=== PATIENT | male | born 1945 | race Caucasian/White ===

== ENCOUNTER → 2017-12-20 14:09 | Outpatient (CLI) | payer MEDICARE ==
[~2017-12-20 14:09] MED LIST: ALEVE220 MG PO; FLOMAX0.4 MG PO; METOPROLOL TART25 MG
[2018-01-11 16:49] VITALS: BMI 26.2
== END | disposition home or self-care (01) ==
LOC: D.CT 14:09
DX: S32.020A Wedge compression fracture of second lumbar vertebra, initial encounter for closed fracture (principal); X58.XXXA Exposure to other specified factors, initial encounter

== ENCOUNTER → 2018-01-07 12:27 | Outpatient (CLI) | payer MEDICARE ==
[2018-01-11 16:49] VITALS: BMI 26.2
== END | disposition home or self-care (01) ==
LOC: D.NM 12:27
DX: C79.51 Secondary malignant neoplasm of bone (principal)

== ENCOUNTER 2018-01-10 10:33 | Inpatient (IN) | payer MEDICARE ==
[2018-01-10] VITALS (9 sets, daily range): BP systolic 152–196; BP diastolic 79–94; BMI 26.3
[~2018-01-10] VITALS: Ht 190.5 cm; Wt 95.3 kg
--- NOTE | ~2018-01-10 | MORECARE ---
CASE MANAGEMENT DISCHARGE SUMMARY PATIENT: STEPHANIE PITTMAN UNIT: [id number] ADM DATE: 01/10/18 AGE: 72 : 47 SEX: M ROOM/BED: D.2217 AUTHOR: CARY,DOC PHYSICIAN: REFERRING PHYSICIAN: OSMAN LOPEZ MD DATE OF SERVICE: 01/16/18 Discharge Plan Patient Name: STEPHANIE PITTMAN Facility: [facility]:[place] : 1945 Planned Disposition: Anticipated Discharge Date: Discharge Date: 01/15/2018 Expected LOS: Initial Reviewer: [email or web address] Initial Review Date: 01/10/2018 Generated: 01/16/18 11:30 am Comments DCP- Discharge Planning Updated by [email or web address]: Nel Bettencourt on 01/15/18 12:[address] patient will be going to room [address] [facility] transporting via EMS, nurse will call report DCP- Discharge Planning Updated by [id number]: Nel Bettencourt on 01/15/18 9:[address] MET WITH PATIENT AND , IMM SERVED AND EXPLAINED. UPDATED THEM ON THE PROCESS OF TRANSFERING TO [facility] FOR RADIATION. THEY VERBALIZE UNDERSTANDING. CM WILL CONTINUE TO ASSIST WITH HELP WITH TRANSFERING TO [facility] ORDERED DCP- Discharge Planning Updated by [id number]: Nel Bettencourt on 01/15/18 9:[address] ORDER RECEIVED TO TRANSFER TO [facility] FOR PALLIATIVE RADIATION. I CALLED [facility] AND SPOKE WITH SONI, FAXED FACESHEET TO [phone] I CALLED THE [facility]GAN [facility] TO LET HER KNOW ALSO DCP- Discharge Planning Updated by [id number]: Nel Bettencourt on 01/11/18 2:[address] Marina Colin with [place] [facility] in [place] ([phone]) stated that they are in the process of getting things set up for him (ramp, elevated toilet, wheelchair, etc ) and she will need the PT and OT eval to help with this approval. They will need to be faxed to [phone] when we receive it. I called and spoke with Harleen to let her know the above Coverage Notice Reviewer: [id number] - Nel Sg Notice Issued Date-Time: 01/15/2018 10:25 Notice Type: IM Discharge Notice Notice Delivered To: Family Member Relationship to Patient: Spouse Title I Teacher Name: SULEIMAN Delivery Method: HAND - Hand Delivered Devika Days: Prior Verbal Notification: Recipient Understood Notice: Yes Recipient Signature: Yes Med Rec Note Co-signed by Attending: Coverage Notice Comment: Last DP export: 01/15/18 1:02 p Patient Name: STEPHANIE PITTMAN Page [id number] at 1030 All edits/amendments must be made on the electronic document DICTATION DATE: 01/16/18 1029 AUTOMOTIVE REPAIR TECHNICIAN: CLINT 01/16/18 1029 RPT#: [id number] DC DATE:01/15/18 STATUS: DIS IN [facility] [address] [place] [address] END OF REPORT
--- NOTE | ~2018-01-10 | MORECARE ---
CASE MANAGEMENT DISCHARGE SUMMARY PATIENT: STEPHANIE PITTMAN UNIT: [id number] ADM DATE: 01/10/18 AGE: 72 : 47 SEX: M ROOM/BED: D.2217 AUTHOR: CARY,DOC PHYSICIAN: REFERRING PHYSICIAN: OSMAN LOPEZ MD DATE OF SERVICE: 01/15/18 Discharge Plan Patient Name: STEPHANIE PITTMAN Facility: [facility]:[place] : 1945 Planned Disposition: Anticipated Discharge Date: Discharge Date: Expected LOS: Initial Reviewer: [email or web address] Initial Review Date: 01/10/2018 Generated: 01/15/18 3:02 pm Comments DCP- Discharge Planning Updated by [email or web address]: Nel Bettencourt on 01/15/18 12:[address] patient will be going to room [address] [facility] transporting via EMS, nurse will call report DCP- Discharge Planning Updated by [email or web address]: Nel Bettencourt on 01/15/18 9:[address] MET WITH PATIENT AND , IMM SERVED AND EXPLAINED. UPDATED THEM ON THE PROCESS OF TRANSFERING TO [facility] FOR RADIATION. THEY VERBALIZE UNDERSTANDING. CM WILL CONTINUE TO ASSIST WITH HELP WITH TRANSFERING TO [facility] ORDERED DCP- Discharge Planning Updated by [email or web address]: Nel Bettencourt on 01/15/18 9:[address] ORDER RECEIVED TO TRANSFER TO [facility] FOR PALLIATIVE RADIATION. I CALLED [facility] AND SPOKE WITH SONI, FAXED FACESHEET TO [phone] I CALLED THE [facility] TO LET HER KNOW ALSO DCP- Discharge Planning Updated by [email or web address]: Nel Bettencourt on 01/11/18 2:[address] [facility] [place] [phone][facility] stated that they are in the process of getting things set up for him (ramp, elevated toilet, wheelchair, etc ) and she will need the PT and OT eval to help with this approval. They will need to be faxed to [phone] when we receive it. I called and spoke with Harleen to let her know the above Coverage Notice Reviewer: [id number] - Nel Bettencourt Notice Issued Date-Time: 01/15/2018 10:25 Notice Type: IM Discharge Notice Notice Delivered To: Family Member Relationship to Patient: Spouse Fashion Coordinator Name: SULEIMAN Delivery Method: HAND - Hand Delivered Devika Days: Prior Verbal Notification: Recipient Understood Notice: Yes Recipient Signature: Yes Med Rec Note Co-signed by Attending: Coverage Notice Comment: Last DP export: 01/15/18 9:36 a Patient Name: STEPHANIE PITTMAN Page [phone] at 1402 All edits/amendments must be made on the electronic document DICTATION DATE: 01/15/18 1402 AIRDROP SYSTEMS TECHNICIAN: CLINT 01/15/18 1402 RPT#: [id number] DC DATE: STATUS: ADM IN [facility] [address] [place] [address] END OF REPORT
--- NOTE | ~2018-01-10 | MORECARE ---
CASE MANAGEMENT DISCHARGE SUMMARY PATIENT: STEPHANIE PITTMAN UNIT: [id number] ADM DATE: 01/10/18 AGE: 72 : 47 SEX: M ROOM/BED: D.2217 AUTHOR: CARY,DOC PHYSICIAN: REFERRING PHYSICIAN: OSMAN LOPEZ MD DATE OF SERVICE: 01/15/18 Discharge Plan Patient Name: STEPHANIE PITTMAN Facility: [facility]:[place] : 1945 Planned Disposition: Anticipated Discharge Date: Discharge Date: Expected LOS: Initial Reviewer: [email or web address] Initial Review Date: 01/10/2018 Generated: 01/15/18 11:36 am Comments DCP- Discharge Planning Updated by [email or web address]: Nel Bettencourt on 01/15/18 9:[address] MET WITH PATIENT AND , IMM SERVED AND EXPLAINED. UPDATED THEM ON THE PROCESS OF TRANSFERING TO [facility] FOR RADIATION. THEY VERBALIZE UNDERSTANDING. CM WILL CONTINUE TO ASSIST WITH HELP WITH TRANSFERING TO [facility] ORDERED DCP- Discharge Planning Updated by [email or web address]: Nel Bettencourt on 01/15/18 9:[address] ORDER RECEIVED TO TRANSFER TO [facility] FOR PALLIATIVE RADIATION. I CALLED [facility] AND SPOKE WITH SONI, FAXED FACESHEET TO [phone] I CALLED THE [facility] TO LET HER KNOW ALSO DCP- Discharge Planning Updated by [email or web address]: Nel Bettencourt on 01/11/18 2:[address] [facility] [place] [facility] [place] ([phone][facility] stated that they are in the process of getting things set up for him (ramp, elevated toilet, wheelchair, etc ) and she will need the PT and OT eval to help with this approval. They will need to be faxed to [phone] when we receive it. I called and spoke with Harleen to let her know the above Coverage Notice Reviewer: [id number] - Nel Bettencourt Notice Issued Date-Time: 01/15/2018 10:25 Notice Type: IM Discharge Notice Notice Delivered To: Family Member Relationship to Patient: Spouse Backup Operator Name: SULEIMAN Delivery Method: HAND - Hand Delivered Devika Days: Prior Verbal Notification: Recipient Understood Notice: Yes Recipient Signature: Yes Med Rec Note Co-signed by Attending: Coverage Notice Comment: Last DP export: 01/15/18 9:22 a Patient Name: STEPHANIE PITTMAN Page [id number] at 1036 All edits/amendments must be made on the electronic document DICTATION DATE: 01/15/18 1035 PUBLIC HEALTH OUTREACH WORKER: CLINT 01/15/18 1035 RPT#: [id number] DC DATE: STATUS: ADM IN [facility] [address] [place] [address] END OF REPORT
--- NOTE | ~2018-01-10 | MORECARE ---
CASE MANAGEMENT DISCHARGE SUMMARY PATIENT: STEPHANIE PITTMAN UNIT: [id number] ADM DATE: 01/10/18 AGE: 72 : 47 SEX: M ROOM/BED: D.2217 AUTHOR: MORELIA TOWNSEND PHYSICIAN: REFERRING PHYSICIAN: OSMAN LOPEZ MD DATE OF SERVICE: 01/15/18 Discharge Plan Patient Name: STEPHANIE PITTMAN [facility] : 1945 Planned Disposition: Anticipated Discharge Date: Discharge Date: Expected LOS: Initial Reviewer: [id number] Initial Review Date: 01/10/2018 Generated: 01/15/18 11:22 am Comments DCP- Discharge Planning Updated by [email or web address]: Nel Bettencourt on 01/15/18 9:[address] ORDER RECEIVED TO TRANSFER TO [facility] FOR PALLIATIVE RADIATION. I CALLED [facility] AND SPOKE WITH SONI, FAXED FACESHEET TO [phone] I CALLED THE MEGAN [facility] TO LET HER KNOW ALSO DCP- Discharge Planning Updated by [email or web address]: Nel Bettencourt on 01/11/18 2:[address] Marina Colin with [place] [facility] in [place] ([phone]) stated that they are in the process of getting things set up for him (ramp, elevated toilet, wheelchair, etc ) and she will need the PT and OT eval to help with this approval. They will need to be faxed to [phone] when we receive it. I called and spoke with Harleen to let her know the above Last DP export: 01/11/18 2:30 Patient Name: STEPHANIE PITTMAN Page [id number] at 1022 All edits/amendments must be made on the electronic document DICTATION DATE: 01/15/18 1021 J2EE PROGRAMMER: CLINT 01/15/18 1021 RPT#: [id number] DC DATE: STATUS: ADM IN [facility] [address] [place] [address] END OF REPORT
--- NOTE | ~2018-01-10 | MORECARE ---
CASE MANAGEMENT DISCHARGE SUMMARY PATIENT: STEPHANIE PITTMAN UNIT: [id number] ADM DATE: 01/10/18 AGE: 72 : [birth year] SEX: M ROOM/BED: D.2217 AUTHOR: MORELIA TOWNSEND PHYSICIAN: REFERRING PHYSICIAN: OSMAN LOPEZ MD DATE OF SERVICE: 01/11/18 Discharge Plan Patient Name: STEPHANIE PITTMAN [facility] : 1945 Planned Disposition: Anticipated Discharge Date: Discharge Date: Expected LOS: Initial Reviewer: [email or web address] Initial Review Date: 01/10/2018 Generated: 01/11/18 4:29 pm Comments DCP- Discharge Planning Updated by [email or web address]: Nel Bettencourt on 01/11/18 2:[address] Marina Dixie with [facility] in [place] ([phone]) stated that they are in the process of getting things set up for him (ramp, elevated toilet, wheelchair, etc ) and she will need the PT and OT eval to help with this approval. They will need to be faxed to [phone] when we receive it. I called and spoke with Harleen to let her know the above Patient Name: STEPHANIE PITTMAN Page [phone] at 1530 All edits/amendments must be made on the electronic document DICTATION DATE: 01/11/18 1529 REMELT OPERATOR: CLINT 01/11/18 1529 RPT#: [id number] DC DATE: STATUS: ADM IN [facility] [address] [place] [address] END OF REPORT
[2018-01-10] MEDS ORDERED: ALEVE220 MG PO (10:48)
[2018-01-10] MEDS ORDERED: METOPROLOL TART25 MG (10:49)
[2018-01-10 13:40] LABS: BASOPHILS 0.5 % (0-2); EOSINOPHILS 1.5 % (0-7); HEMOGLOBIN 12.1 g/dL (13.5-17.5); LYMPHOCYTES 13.9 % (15-50); MCH 26.2 pg (26.0-34.0); MCHC 32.7 g/dL (31.0-37.0); MCV 80.3 fL (80.0-100.0); MEAN PLATELET VOLUME 9.4 fL (7.4-10.4); MONOCYTES 8.1 % (2-11); PLATELET COUNT 232 10x3/uL (130-400); RBC 4.61 10x6/uL (4.20-6.10); RDW 14.7 % (11.5-14.5); WBC 11.7 10x3/uL (4.8-10.8)
[2018-01-10 13:54] LABS: ALBUMIN 2.3 g/dL (3.4-5.0); ANION GAP 17.1 mmol/L (8-16); BILIRUBIN - TOTAL 0.59 mg/dL (0.2-1.3); CALCIUM 10.4 mg/dL (8.5-10.1); CARBON DIOXIDE 25.2 mmol/L (21.0-32.0); CREATININE - SERUM 1.1 mg/dL (0.6-1.3); POTASSIUM - SERUM 3.3 mmol/L (3.5-5.1)
[2018-01-10 16:37] LABS: APPEARANCE CLEAR (CLEAR); BACTERIA NONE SEEN /hpf (NONE SEEN); BILIRUBIN NEGATIVE (NEGATIVE); COLOR YELLOW (YELLOW); EPITHELIAL CELLS NSEEN /hpf (0-5); GLUCOSE NEGATIVE (NEGATIVE); KETONE SMALL mg/dL (NEGATIVE); NITRITE NEGATIVE (NEGATIVE); PROTEIN 1+ mg/dL (NEGATIVE); RED CELLS - URINE NONE SEEN /hpf (0-5); SPECIFIC GRAVITY 1.015 (1.005-1.020); UROBILINOGEN NORMAL (NORMAL); WHITE CELLS - URINE RARE /hpf (0-5)
[2018-01-11] VITALS: BP 177/92
[2018-01-11 04:00] VITALS: BP 158/91
[2018-01-11 04:27] LABS: BASOPHILS 0.3 % (0-2); EOSINOPHILS 1.8 % (0-7); HEMATOCRIT 34.9 % (42.0-54.0); HEMOGLOBIN 11.4 g/dL (13.5-17.5); IMMATURE GRANULOCYTES 4.6 % (0-5); LYMPHOCYTES 14.7 % (15-50); MCH 26.2 pg (26.0-34.0); MCHC 32.7 g/dL (31.0-37.0); MCV 80.2 fL (80.0-100.0); MEAN PLATELET VOLUME 9.1 fL (7.4-10.4); MONOCYTES 8.9 % (2-11); NEUTROPHILS 69.7 % (40-80); PLATELET COUNT 207 10x3/uL (130-400); RBC 4.35 10x6/uL (4.20-6.10); RDW 14.7 % (11.5-14.5); WBC 10.7 10x3/uL (4.8-10.8)
[2018-01-11 04:38] LABS: CALC OSMOLALITY 278 mosm/kg (275-300); CALCIUM 9.9 mg/dL (8.5-10.1); CARBON DIOXIDE 28.1 mmol/L (21.0-32.0); CHLORIDE - SERUM 102 mmol/L (98-107); GLUCOSE 97 mg/dL (74-106); POTASSIUM - SERUM 3.4 mmol/L (3.5-5.1); SODIUM 138 mmol/L (136-145); UREA NITROGEN 21 mg/dL (7-18); eGFR NON AFRICAN AMERICAN 78 mL/min (90-120)
[2018-01-11 08:30] VITALS: BP 136/88
[2018-01-11 12:35] VITALS: BMI 26.2
[2018-01-11 12:53] VITALS: BP 170/94
[2018-01-11 16:49] VITALS: Ht 190.5 cm; Wt 95.3 kg
[2018-01-11 20:08] VITALS: BP 176/91
[2018-01-12 04:27] VITALS: BP 175/90
[2018-01-12 05:10] LABS: BASOPHILS 0.3 % (0-2); EOSINOPHILS 1.4 % (0-7); HEMATOCRIT 34.6 % (42.0-54.0); HEMOGLOBIN 11.3 g/dL (13.5-17.5); IMMATURE GRANULOCYTES 4.8 % (0-5); LYMPHOCYTES 15.2 % (15-50); MCH 26.1 pg (26.0-34.0); MCHC 32.7 g/dL (31.0-37.0); MCV 79.9 fL (80.0-100.0); MEAN PLATELET VOLUME 9.9 fL (7.4-10.4); MONOCYTES 9.3 % (2-11); PLATELET COUNT 203 10x3/uL (130-400); RBC 4.33 10x6/uL (4.20-6.10); RDW 14.7 % (11.5-14.5); WBC 11.6 10x3/uL (4.8-10.8)
[2018-01-12 05:28] LABS: ALKALINE PHOSPHATASE 193 U/L (46-116); ALT (SGPT) 24 U/L (10-68); BILIRUBIN - TOTAL 0.37 mg/dL (0.2-1.3); CALC OSMOLALITY 279 mosm/kg (275-300); CALCIUM 9.6 mg/dL (8.5-10.1); CARBON DIOXIDE 28.2 mmol/L (21.0-32.0); CHLORIDE - SERUM 101 mmol/L (98-107); GLUCOSE 110 mg/dL (74-106); PROTEIN - SERUM 5.7 g/dL (6.4-8.2); SODIUM 138 mmol/L (136-145); UREA NITROGEN 20 mg/dL (7-18); eGFR NON AFRICAN AMERICAN 78 mL/min (90-120)
[2018-01-12 20:00] VITALS: BP 126/69
[2018-01-13] VITALS: BP 172/89
[2018-01-13 04:00] VITALS: BP 167/87
[2018-01-13 05:39] LABS: BASOPHILS 0.3 % (0-2); EOSINOPHILS 0.8 % (0-7); HEMOGLOBIN 10.8 g/dL (13.5-17.5); IMMATURE GRANULOCYTES 2.7 % (0-5); LYMPHOCYTES 10.6 % (15-50); MCH 25.9 pg (26.0-34.0); MCHC 32.7 g/dL (31.0-37.0); MCV 79.1 fL (80.0-100.0); MEAN PLATELET VOLUME 9.8 fL (7.4-10.4); MONOCYTES 7.6 % (2-11); PLATELET COUNT 170 10x3/uL (130-400); RBC 4.17 10x6/uL (4.20-6.10); RDW 14.8 % (11.5-14.5); WBC 11.8 10x3/uL (4.8-10.8)
[2018-01-13 06:00] LABS: ALBUMIN 1.8 g/dL (3.4-5.0); ALKALINE PHOSPHATASE 180 U/L (46-116); ALT (SGPT) 19 U/L (10-68); BILIRUBIN - TOTAL 0.36 mg/dL (0.2-1.3); CALC OSMOLALITY 272 mosm/kg (275-300); CALCIUM 9.4 mg/dL (8.5-10.1); CARBON DIOXIDE 28.3 mmol/L (21.0-32.0); CHLORIDE - SERUM 99 mmol/L (98-107); CREATININE - SERUM 0.9 mg/dL (0.6-1.3); GLUCOSE 117 mg/dL (74-106); PROTEIN - SERUM 6.1 g/dL (6.4-8.2); SODIUM 135 mmol/L (136-145); UREA NITROGEN 19 mg/dL (7-18); eGFR NON AFRICAN AMERICAN 89 mL/min (90-120)
[2018-01-13 06:04] LABS: POTASSIUM - SERUM 3.2 mmol/L (3.5-5.1)
[2018-01-13 09:31] VITALS: BP 151/86
[2018-01-13 09:48] LABS: MAGNESIUM - SERUM 1.8 mg/dL (1.8-2.4); PHOSPHOROUS 2.9 mg/dL (2.5-4.9)
[2018-01-13 12:37] VITALS: BP 170/91
[2018-01-13 17:28] VITALS: BP 160/89
[2018-01-13 20:00] VITALS: BP 174/90
[2018-01-14] VITALS: BP 163/87
[2018-01-14 04:00] VITALS: BP 167/93
[2018-01-14 04:33] LABS: BASOPHILS 0.2 % (0-2); EOSINOPHILS 0.5 % (0-7); HEMATOCRIT 32.5 % (42.0-54.0); HEMOGLOBIN 10.7 g/dL (13.5-17.5); LYMPHOCYTES 11.1 % (15-50); MCHC 32.9 g/dL (31.0-37.0); MCV 78.9 fL (80.0-100.0); MEAN PLATELET VOLUME 9.8 fL (7.4-10.4); MONOCYTES 7.3 % (2-11); NEUTROPHILS 78.9 % (40-80); PLATELET COUNT 175 10x3/uL (130-400); RBC 4.12 10x6/uL (4.20-6.10); RDW 14.9 % (11.5-14.5); WBC 11.7 10x3/uL (4.8-10.8)
[2018-01-14 06:27] LABS: ALBUMIN 1.8 g/dL (3.4-5.0); ALKALINE PHOSPHATASE 180 U/L (46-116); CALC OSMOLALITY 270 mosm/kg (275-300); CALCIUM 9.5 mg/dL (8.5-10.1); CARBON DIOXIDE 25.1 mmol/L (21.0-32.0); CHLORIDE - SERUM 97 mmol/L (98-107); CREATININE - SERUM 0.8 mg/dL (0.6-1.3); GLUCOSE 109 mg/dL (74-106); POTASSIUM - SERUM 3.7 mmol/L (3.5-5.1); PROTEIN - SERUM 6.1 g/dL (6.4-8.2); SODIUM 134 mmol/L (136-145); UREA NITROGEN 18 mg/dL (7-18); eGFR NON AFRICAN AMERICAN > 90 mL/min (90-120)
[2018-01-14 06:28] LABS: ALT (SGPT) 38 U/L (10-68)
[2018-01-14 08:45] VITALS: BP 174/87
[2018-01-14 13:07] VITALS: BP 165/87
[2018-01-14 17:30] VITALS: BP 135/90
[2018-01-14 20:00] VITALS: BP 159/86
[2018-01-15 05:11] VITALS: BP 143/70
[2018-01-15 05:24] LABS: BASOPHILS 0.3 % (0-2); EOSINOPHILS 0.9 % (0-7); HEMATOCRIT 33.6 % (42.0-54.0); IMMATURE GRANULOCYTES 1.7 % (0-5); LYMPHOCYTES 12.6 % (15-50); MCH 26.1 pg (26.0-34.0); MCHC 32.7 g/dL (31.0-37.0); MCV 79.8 fL (80.0-100.0); MEAN PLATELET VOLUME 10.2 fL (7.4-10.4); MONOCYTES 7.7 % (2-11); NEUTROPHILS 76.8 % (40-80); PLATELET COUNT 160 10x3/uL (130-400); RBC 4.21 10x6/uL (4.20-6.10); RDW 15.1 % (11.5-14.5)
[2018-01-15 06:13] LABS: ALBUMIN 1.8 g/dL (3.4-5.0); ALKALINE PHOSPHATASE 232 U/L (46-116); BILIRUBIN - TOTAL 0.52 mg/dL (0.2-1.3); CALC OSMOLALITY 271 mosm/kg (275-300); CALCIUM 8.6 mg/dL (8.5-10.1); CARBON DIOXIDE 24.4 mmol/L (21.0-32.0); CHLORIDE - SERUM 98 mmol/L (98-107); CREATININE - SERUM 0.8 mg/dL (0.6-1.3); GLUCOSE 117 mg/dL (74-106); POTASSIUM - SERUM 3.8 mmol/L (3.5-5.1); PROTEIN - SERUM 6.3 g/dL (6.4-8.2); SODIUM 134 mmol/L (136-145); UREA NITROGEN 21 mg/dL (7-18); eGFR NON AFRICAN AMERICAN > 90 mL/min (90-120)
[2018-01-15 06:16] LABS: ALT (SGPT) 90 U/L (10-68)
[2018-01-15] MEDS ORDERED: FLOMAX0.4 MG PO (10:53)
[2018-01-15 13:25] VITALS: BP 118/71
== END 2018-01-15 16:00 | DRG 542 ==
LOC: D.ER 10:33 → D.MS 17:20 → D.EDHOLD 17:20 → D.MS 22:38
PROVIDERS: Family Medicine; Internal Medicine Nephrology
DX: C79.51 Secondary malignant neoplasm of bone (principal); E43 Unspecified severe protein-calorie malnutrition; C64.9 Malignant neoplasm of unspecified kidney, except renal pelvis; E44.0 Moderate protein-calorie malnutrition; C79.71 Secondary malignant neoplasm of right adrenal gland; M84.48XA Pathological fracture, other site, initial encounter for fracture; N28.89 Other specified disorders of kidney and ureter; I10 Essential (primary) hypertension; M54.16 Radiculopathy, lumbar region